=== PATIENT | male | born 1955 | race Caucasian/White ===

== ENCOUNTER → 2016-08-06 | Outpatient (CLI) | payer MEDICARE, MEDICAID ==
[~2016-08-06] MED LIST: ASCORBIC ACID500 MG PO; CEPACOL SORE T1 EACH PO; DUONEB DPS3 ML IH; FEOSOL-DPS325 MG PO; FLOMAX DPS0.4 MG PO; LASIX DPS20 MG PO; LEVAQUIN DPS500 MG PO; LOPRESSOR50 MG PO; METROGEL 0.75%45 GM TP; MIRALAX PACKET17 GM PO; PERIDEX15 ML PO; PRAVACHOL20 M1 PO; PROTONIX40 MG PO; ROCALTROL DP0.25 MCG PO; SYNTHROID100 MCG PO; TUSSIN DM CLEA118 ML PO; TYLENOL #3 DPS1 TAB PO; TYLENOL DPS325 MG PO; VITAMIN D-32000 UNI1 PO; XARELTO20 MG PO; ZYPREXA2.5 MG PO
== END | disposition home or self-care (01) ==
LOC: RAD.S 08:41
DX: J69.0 Pneumonitis due to inhalation of food and vomit (principal)